=== PATIENT | male | born 1975 | race Two or more races ===

== ENCOUNTER 2016-08-22 18:11 | Emergency (ER) | payer OTHER ==
[2016-08-22 18:20] VITALS: RESP 16; O2SAT 93
[2016-08-22] MEDS ORDERED: OXYCODONE/APAP 5/325 TAB PO ONE (19:01)
--- NOTE | 2016-08-22 19:01 | EDPHY ---
H & P Stated Complaint: fell onto left shoulder 4 x days ago. Had xrays, supposed to F /U with MD Time Seen by Provider: 08/22/16 18:44 HPI/ROS: CHIEF COMPLAINT: Left shoulder pain HISTORY OF PRESENT ILLNESS: The patient is a 40-year-old man who is Icelandic- speaking only. He comes to the emergency department with his complaining of left shoulder pain. History taken through raised printer. He states that about a week ago he fell onto his right shoulder and had immediate pain. He did not have any symptoms prior to this. He was seen by his primary and had films done that were read as negative. He has had continued pain however. He is not currently taking any pain medication. He is not wearing any sling are brace. He denies pain in his neck or elbow or elsewhere. He states that has normal strength and sensation but has pain with elevation of his arm above 90 degrees in any direction. REVIEW OF SYSTEMS: Constitutional: denies: chills, fever, recent illness, recent injury EENTM: denies: blurred vision, double vision, nose congestion Respiratory: denies: cough, shortness of breath Cardiac: denies: chest pain, irregular heart rate, lightheadedness, palpitations Gastrointestinal/Abdominal: denies: abdominal pain, diarrhea, nausea, vomiting, blood streaked stools Genitourinary: denies: dysuria, frequency, hematuria, pain Musculoskeletal: See HPI Skin: denies: lesions, rash, jaundice, bruising Neurological: denies: headache, numbness, paresthesia, tingling, dizziness, weakness Hematologic/Lymphatic: denies: blood clots, easy bleeding, easy bruising Immunologic/allergic: denies: HIV/AIDS, transplant EXAM: GENERAL: Well-appearing, well-nourished and in no acute distress. HEAD: Atraumatic, normocephalic. EYES: Pupils equal round and reactive to light, extraocular movements intact, sclera anicteric, conjunctiva are normal. ENT: TMs normal, nares patent, oropharynx clear without exudates. Moist mucous membranes. NECK: Normal range of motion, supple without lymphadenopathy or JVD. LUNGS: Breath sounds clear to auscultation bilaterally and equal. No wheezes rales or rhonchi. HEART: Regular rate and rhythm without murmurs, rubs or gallops. ABDOMEN: Soft, nontender, normoactive bowel sounds. No guarding, no rebound. No masses appreciated. BACK: No CVA tenderness, no spinal tenderness, step-offs or deformities EXTREMITIES: Left shoulder pain with elevation, no deformity. No tenderness to palpation. No neck pain. Normal range of motion of elbow. Normal pulses. NEUROLOGICAL: Cranial nerves II through XII grossly intact. Normal speech, normal gait. 5/5 strength, normal movement in all extremities, normal sensation PSYCH: Normal mood, normal affect. SKIN: Warm, dry, normal turgor, no visible rashes or lesions. Source: Patient Exam Limitations: No limitations - Personal History Current Tetanus Diphtheria and Acellular Pertussis (TDAP): Yes - Medical/Surgical History Hx Asthma: No Hx Chronic Respiratory Disease: No Hx Diabetes: No Hx Cardiac Disease: No Hx Renal Disease: No Hx Cirrhosis: No Hx Alcoholism: No Hx HIV/AIDS: No Hx Splenectomy or Spleen Trauma: No Other PMH: Appendectomy. - Family History Significant Family History: No pertinent family hx - Social History Smoking Status: Heavy smoker Alcohol Use: Sober Drug Use: None Constitutional: Initial Vital Signs Temperature (C) 36.4 C 08/22/16 18:13 Heart Rate 120 H 08/22/16 18:13 Respiratory Rate 16 08/22/16 18:13 Blood Pressure 131/100 H 08/22/16 18:13 O2 Sat (%) 93 08/22/16 18:13 O2 Delivery Mode Room Air Allergies/Adverse Reactions: No Known Allergies Allergy (Unverified 10/25/11 19:52) Home Medications: Medication Instructions Recorded No Medications [NO HOME 10/25/11 MEDICATIONS] oxyCODONE/APAP 5/325 [Percocet 1 - 2 tab PO Q6H PRN #20 tab 08/22/16 5/325 (*)] Medical Decision Making - Diagnostics Imaging: X-ray: Shoulder x-ray was obtained. I viewed the images myself on the PACS system. My interpretation of the images is: AC separation. The radiologist interpretation is grade 1 AC separation. Procedures: Procedure: Splint placement. A arm splint was applied. After application of the splint I returned and re- examined the patient. The splint was adequately immobilizing the joint and distal to the splint the patient's circulation and sensation was intact. ED Course/Re-evaluation: We discussed the x-ray results and splint placement. Patient understands and agrees with this as does his . I instructed him not to drive while he is taking pain medications. His brother will drive. He also requests a note for work. He works as a [employer]. Differential Diagnosis: Partial list of the Differential diagnosis considered include but were not limited to; AC separation, contusion, rotator cuff injury and although unlikely based on the history and physical exam, I also considered fracture, dislocation. I discussed these differential diagnoses and the plan with the patient as well as the usual and expected course. The patient understands that the diagnosis is provisional and that in medicine we are not always correct and that further workup is often warranted. Usual and customary warnings were given. All of the patient's questions were answered. The patient was instructed to return to the emergency department should the symptoms at all worsen or return, otherwise to followup with the physician as we discussed. - Data Points Medications Given: Discontinued Medications Oxycodone/Acetaminophen (Percocet 5/325) 2 tab PO EDNOW ONE Stop: 08/22/16 19:02 Last Admin: 08/22/16 19:16 Dose: 2 tab Departure - Departure Disposition: Home, Routine, Self-Care Clinical Impression: AC separation Qualifiers: Encounter type: initial encounter Laterality: left Qualifier Code: (S43.102A) Unspecified dislocation of left acromioclavicular joint, initial encounter Condition: Fair Instructions: Acromioclavicular Separation (ED) Additional Instructions: AC separation ------ Separacion AC (separacion acromioclavicular) Referrals: [place],. [Primary Care Provider] - As per Instructions Herman Wakefield MD [Medical Doctor] - As per Instructions Prescriptions: oxyCODONE/APAP 5/325 [Percocet 5/325 (*)] 1 - 2 tab PO Q6H PRN #20 tab PRN Reason: Pain, Severe Print Language: Icelandic
--- NOTE | 2016-08-22 19:37 | DX ---
Acromioclavicular joints 3 views Technique: Without and with weight-bearing. Findings: The left acromioclavicular joint is slightly wider than the left, with no inferior displace ment. No change with weight-bearing. Chronicity of the mild widening is unknown. No fracture is ident ified. Impression: Grade 1 separation of left AC joint.
[2016-08-22 20:13] VITALS: BP 134/88; PULSE 110; TEMP 98.2
== END 2016-08-22 20:11 | disposition home or self-care (01) ==
DX: S43.102A Unspecified dislocation of left acromioclavicular joint, initial encounter (principal); F17.200 Nicotine dependence, unspecified, uncomplicated; W18.39XA Other fall on same level, initial encounter

== ENCOUNTER 2018-01-22 12:17 | Emergency (ER) | payer OTHER ==
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
[2018-01-22 16:29] VITALS: BP 122/93
== END 2018-01-22 16:31 | disposition home or self-care (01) ==
DX: S72.112A Displaced fracture of greater trochanter of left femur, initial encounter for closed fracture (principal); F17.200 Nicotine dependence, unspecified, uncomplicated; V17.0XXA Pedal cycle driver injured in collision with fixed or stationary object in nontraffic accident, initial encounter; Y92.89 Other specified places as the place of occurrence of the external cause; Y99.8 Other external cause status; Y93.55 Activity, bike riding

== ENCOUNTER 2018-01-30 21:38 | Emergency (ER) | payer OTHER ==
[2018-01-30] MEDS ORDERED: DOXYCYCLINE 100 MG PREPACK#2 BTL TAKEHOME ONE (22:23)
[2018-01-30] MEDS ORDERED: VANCOMYCIN 1.5 GM in D5W 250 ML IV ONE (22:23)
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
[2018-01-30 22:47] LABS: PLATELET COUNT 286 10^3/uL (150-400)
[2018-01-31 00:28] VITALS: BP 129/75
== END 2018-01-31 00:28 | disposition home or self-care (01) ==
DX: L03.114 Cellulitis of left upper limb (principal); F17.200 Nicotine dependence, unspecified, uncomplicated
CPT/HCPCS: J3370